=== PATIENT | female | born 1945 | race Caucasian/White ===

== ENCOUNTER → 2018-10-03 | Day surgery (SDC) | payer OTHER ==
[~2018-10-03] MED LIST: FOSAMAX 70 MG T70 MG PO; LIPITOR10 MG PO; LISINOPRIL2.5 MG PO; METFORMIN HCL500 MG PO
--- NOTE | ~2018-10-03 | H ---
[address] [address] HISTORY AND PHYSICAL Name: AQUILES NICHOLS Room: [facility]..#: [id number] Admission: Attend Phys: Tamia Esqueda MD Discharge: Date of : 43 Report #: [id number] THIS REPORT FOR: //name// CC: DIDIER Esqueda To be admitted and treated on 10/03/2018. ADMITTING DIAGNOSES: Cholelithiasis. HISTORY OF PRESENT ILLNESS: The patient is a 73-year-old white female who presented to my office with complaints of right upper quadrant pain. She was worked up by her private medical physician and that workup concluded with cholelithiasis, and she was referred for surgical management. PAST MEDICAL HISTORY: Includes stroke and borderline diabetes. CURRENT MEDICATIONS: Include alendronate, lisinopril, metformin and atorvastatin. PAST SURGICAL HISTORY: Includes a knee surgery in the past. SOCIAL HISTORY: Former smoker, quit 2 years ago. No history of excess alcohol or illegal drugs. FAMILY HISTORY: Noted for obesity, diabetes. OTHER REVIEW OF SYSTEMS: She denies any nausea or vomiting, any chest pain. She denied any skin changes, breast masses or itching. She denied any chronic cough or shortness of breath. PHYSICAL EXAMINATION: GENERAL: Modestly obese, well-developed female, in no acute distress. HEAD EYES, EARS, NOSE AND THROAT: Unremarkable. Sclerae are anicteric. NECK: Supple. Her neck was normal size with no mass, lesions. LUNGS: Clear. HEART: Regular rate and rhythm. ABDOMEN: Soft, nontender. Normal bowel sounds. She had no breast masses. NEUROLOGIC: She is oriented to person, place and time. IMPRESSION: Cholelithiasis without acute cholecystitis. PLAN: I have outlined laparoscopic cholecystectomy, its risks [place] [address] HISTORY AND PHYSICAL Name: MAGDALENAAQUILESGissel TRENT Room: [facility]#: [id number] Admission: Attend Phys: Tamia Esqueda MD Discharge: Date of : 43 Report #: [id number] answered her questions. She understands and wishes to proceed with surgical treatment. By: 1627 1712Tamia Esqueda MD /nt
--- NOTE | ~2018-10-03 | OP ---
[facility] [address] [place] [address] OPERATIVE REPORT Name: AQUILES NICHOLS Room: [facility].#: [id number] Admission: 10/03/18 Attend Phys: Tamia Esqueda MD Discharge: Date of : 43 Report #: [id number] THIS REPORT FOR: //name// CC: DIDIER Esqueda DATE OF SERVICE: 10/03/2018 PREOPERATIVE DIAGNOSIS: Chronic cholecystitis. POSTOPERATIVE DIAGNOSIS: Chronic cholecystitis. OPERATIVE PROCEDURE: Laparoscopic cholecystectomy. ANESTHESIA: General endotracheal with 0.25% Marcaine infiltrated into the wound sites. DESCRIPTION OF PROCEDURE: The patient was placed under general endotracheal anesthesia, and the abdomen was prepped and draped in a sterile fashion. The timeout taken. Antibiotics administered. I began by infiltrating in the infraumbilical crease with 0.5% Marcaine. A transverse incision was placed there. I just lifted up with 2 Adson forceps and cautery used to dissect down to the anterior abdominal wall that anterior abdominal wall was grasped with 2 Kochers and tented upward and cleared with cautery and then transversely incised with a #15 scalpel blade. Blunt dissection with a hemostat into the peritoneal cavity was performed and entered into the abdominal cavity without injury to underlying abdominal viscera. A 0 PDS was looped through this incision site and a size 12 Rebecca trocar was placed into the peritoneal cavity and secured at the skin. Insufflation with carbon dioxide to 5 L was completed. A 5 mm 30-degree scope was inserted into the peritoneal cavity. The right upper quadrant was inspected under direct visualization. Infiltration in the subcostal margin on the right side at the epigastric, midclavicular and anterior axillary line was accomplished, followed by 3 small incisions and then three 5 mm bladeless trocars were placed under direct visualization into the peritoneal cavity. The patient then was placed in reverse Trendelenburg left lateral decubitus positioning, and the gallbladder in the right upper quadrant had some adhesions to the liver or into the peritoneal surface, which was taken down with cautery and then the gallbladder was tented towards the diaphragm. Meticulous dissection at the triangle of Calot carefully dissected out the cystic duct and cystic artery. These two structures were controlled with Hemoclips and divided with laparoscopic scissors. Handheld cautery then was used to dissect the gallbladder off the undersurface of the liver. During that dissection, we did get into the gallbladder and some bile did spill. Once the gallbladder was free from its attachment, site changed to the camera position from the umbilical to the epigastric port and through the umbilical port, an Endopouch was fed into the abdomen under direct visualization. The [place] [address] OPERATIVE REPORT Name: AQUILES NICHOLS Room: [facility]..#: [id number] Admission: 10/03/18 Attend Phys: Tamia Esqueda MD Discharge: Date of : 43 Report #: [id number] pouch. The pouch string was pulled from the outside of the patient closing the pouch and the pouch and the gallbladder were retrieved from the umbilical incision site. The Rebecca trocar was then replaced back into the peritoneal cavity. Pneumoperitoneum was reestablished with the camera from the umbilical port. The upper abdomen was inspected, irrigated and aspirated until effluent came back clear. I then removed the endocrinology specialist, removed all laparoscopic instruments and then the trocars and deflated pneumoperitoneum. The umbilical 0 PDS was tied at the incision site and infiltrated with Marcaine and then all four incisions were closed with buried 4-0 PDS sutures and sealed with Dermabond at the end of the operative procedure. ESTIMATED BLOOD LOSS: 5 mL. Sponge and instrument counts correct. Specimen of gallbladder was sent to pathology. The patient was extubated, returned to recovery in stable condition. By: 1323 1631Tamia Esqueda MD /nt
[2018-10-03 11:08] LABS: HEMATOCRIT 51.2 % (37.0-47.0); MCH 28.5 pg (26.0-34.0); MCHC 33.2 g/dL (28.0-37.0); MCV 85.8 fL (80.0-100.0); MPV 9.4 fl. (7.2-11.1); RBC 5.97 mil/uL (4.20-5.00); WBC 10.7 thou/uL (4.0-11.0)
[2018-10-03 11:17] LABS: ALBUMIN 3.6 g/dL (3.4-5.0); CALCIUM 9.3 mg/dL (8.5-10.1); CREATININE 1.2 mg/dL (0.6-1.3); POTASSIUM 4.1 mmol/L (3.5-5.1); TOTAL BILIRUBIN 0.6 mg/dL (<0.1-1.0); TOTAL PROTEIN 8.1 g/dL (6.4-8.2)
--- NOTE | 2018-10-03 15:14 | EKG ---
[place] [address] ELECTROCARDIOGRAM REPORT Name: AQUILES NICHOLS Room: [facility]#: [id number] Admission: 10/03/18 Attend Phys: Tamia Esqueda MD Discharge: Date of : 43 Report #: [id number] THIS REPORT FOR: //name// [facility] Test Date: 2018-10-03 Test Time: 11:41:29 Pat Name: AQUILES NICHOLS Department: Room: Gender: F Metal Spinner: : 1945 Requested By: Tamia Esqueda Order Number: [id number] Reading MD: Boni Weinstein Measurements Intervals [place] Rate: 68 P: 15 LA: 183 QRS: -33 QRSD: 99 T: 36 QT: 395 QTc: 421 Interpretive Statements Sinus rhythm Left axis deviation No previous ECG available for comparison Electronically Signed On 10-03-2018 15:14:09 CDT by Boni Weinstein [email or web address] <ELECTRONICALLY SIGNED> By: Boni Weinstein MD, [facility] 10/03/18 1514 1141 1141 Boni Weinstein MD, FACC /EPI
--- NOTE | 2018-10-05 14:07 | PATH ---
[address] [address] PATHOLOGY RPT PROCEDURE Name: LAURA NICHOLS Room: [facility]..#: [id number] Admission: 10/03/18 Date of : 43 Discharge: Report #: [id number] Path Case #: [id number] [facility] Accession Number: [id number] . 01 Material submitted: . GALLBLADDER . 01 Clinical history: . Cholelithiasis . 02 Diagnosis: Gallbladder "gallbladder cholecystectomy": - Chronic cholecystitis with cholelithiasis. (SHA:[facility] 10/05/2018) QTP/10/05/2018 . 02 Electronically signed: . Teto Ratliff MD, Pathologist NPI- [id number] . 01 Gross description: . The specimen is received in formalin, labeled "Laura Nichols gallbladder". Received is an intact gallbladder measuring 6.4 x 4.0 x 1.0 cm in greatest dimensions displaying a pink-bey to adipose covered serosal surface. Opening the gallbladder reveals a velvety, light smith to bile-stained mucosa with a gallbladder wall thickness of 0.1 cm. A single light green, granular calculus is present and no masses or lesions are noted grossly. Manager Stylist sections, to include the proximal margin, are submitted in cassette A1. (CAA; 10/04/2018) QAC/QAC . 02 Pathologist provided ICD-10: K80.10 . 02 CPT . 079533 Specimen Comment: A courtesy copy of this report has been sent to Specimen Comment: [phone], . Specimen Comment: Report sent to / DR SHARMA Performed at: [address], [place], [place] [id number] MD Kyrie Nieto MD Phone: [phone] Performed at: 02 [facility] [address], [place], [place] [id number] MD Landry Andino MD Phone: [phone]
== END | disposition home or self-care (01) ==
LOC: M.SUR 07:43
PROVIDERS: Surgery
DX: K80.10 Calculus of gallbladder with chronic cholecystitis without obstruction (principal); Z86.73 Personal history of transient ischemic attack (TIA), and cerebral infarction without residual deficits; Z79.899 Other long term (current) drug therapy; Z98.890 Other specified postprocedural states; Z87.891 Personal history of nicotine dependence; Z83.3 Family history of diabetes mellitus; E66.9 Obesity, unspecified

== ENCOUNTER 2018-11-29 08:52 | Inpatient (IN) | payer OTHER ==
[2018-11-17 09:08] LABS: ABSOLUTE BASOPHILS 0.1 thou/uL (0.0-0.2); ABSOLUTE LYMPHOCYTES 2.3 thou/uL (0.8-5.3); ABSOLUTE MONOCYTES 0.6 thou/uL (0.0-1.2); BASOPHILS 1.2 %; EOSINOPHILS 9.8 %; HEMATOCRIT 51.3 % (37.0-47.0); HEMOGLOBIN 17.1 gm/dL (12.0-15.0); MCH 28.1 pg (26.0-34.0); MCHC 33.4 g/dL (28.0-37.0); MCV 84.2 fL (80.0-100.0); MONOCYTES 5.6 %; MPV 9.6 fl. (7.2-11.1); NUCLEATED RBCS 0 /100WBC; PLATELET COUNT* 279 thou/uL (150-400); POLYS 60.4 %; RBC 6.09 mil/uL (4.20-5.00); RDW-CV 14.5 % (10.5-14.5); WBC 9.9 thou/uL (4.0-11.0)
[2018-11-17 09:21] LABS: ALBUMIN 3.4 g/dL (3.4-5.0); CALCIUM 9.7 mg/dL (8.5-10.1); CREATININE 1.4 mg/dL (0.6-1.3); POTASSIUM 4.3 mmol/L (3.5-5.1); TOTAL BILIRUBIN 0.4 mg/dL (<0.1-1.0); TOTAL PROTEIN 7.7 g/dL (6.4-8.2)
[2018-11-17 11:13] LABS: ESR (SEDRATE) 2 mm/hr (0-30)
[2018-11-17 22:06] LABS: GLYCOHEMOGLOBIN (HGB A1C) 6.5 % (4.8-5.6)
[~2018-11-29] VITALS: Ht 162.6 cm; Wt 90.7 kg
[2018-11-29 15:00] VITALS: BP 119/68
--- NOTE | 2018-11-29 17:44 | NUR ---
PT ARRIVED FROM SURGERY AROUND 1500. PT STABLE. MEPILEX IS CLEAN, DRY AND INTACT. TEDS, SCDs AND ICE PACK IN PLACE. UP WITH 1 TO CAMMODE. IV IN R HAND PATENT, INFUSING. SON IN ROOM. TOLERATING DIET. PAIN CONTROLLED WITH OXY IR. ON RA WITH CONTINUOUS PULSE OX. A&Ox4. WBAT. FALL PRECAUTIONS IN PLACE. CALL LIGHT WITHIN REACH. WILL CONTINUE TO MONITOR.
[2018-11-29 20:00] VITALS: BP 113/56
[2018-11-30] VITALS (7 sets, daily range): BP systolic 88–114; BP diastolic 33–57
[2018-11-30 04:14] LABS: HEMOGLOBIN 13.3 gm/dL (12.0-15.0)
[2018-11-30 04:38] LABS: CALCIUM 8.8 mg/dL (8.5-10.1); CREATININE 1.3 mg/dL (0.6-1.3); MAGNESIUM 1.6 mg/dL (1.8-2.4); POTASSIUM 4.2 mmol/L (3.5-5.1)
--- NOTE | 2018-11-30 04:50 | NUR ---
ASSUMED PATIENT CARE AT 1900. PATIENT ALERT AND ORIENTED TIMES FOUR. MINOR COMPLAINTS OF PAIN, CONTROLLED WITH ORAL PAIN MEDICATIONS. IV PATENT. ABLE TO AMBULATE TO THE BEDSIDE COMMODE WITH WALKER/GAIT BELT, MIN ASSISST OF ONE.DRESSING C/D/I. FALL RISK PRECAUTIONS IN PLACE. OPTICAL ADVISOR AND HOURLY ROUNDING COMPLETED DOCUMENTED.
--- NOTE | 2018-11-30 12:51 | NUR ---
RECIEVED O.T. EVAL AND TX ORDERS. WILL DEFER TO P.T. AND NURSING. PLEASE ORDER FURTHER O.T. SERVICES IF NEEDED.
--- NOTE | 2018-11-30 13:22 | OP ---
[address] [address] OPERATIVE REPORT Name: AQUILES NICHOLS Room: [address] IN .R.#: [id number] Admission: 11/29/18 Attend Phys: Mikhail Hollis Discharge: Date of : 43 Report #: [id number] THIS REPORT FOR: //name// CC: DIDIER Donnelly DICTATED BY: Suresh Rush DO DATE OF SERVICE: 11/29/2018 PREOPERATIVE DIAGNOSIS: Advanced tricompartmental osteoarthritis, left knee. POSTOPERATIVE DIAGNOSIS: Advanced tricompartmental osteoarthritis, left knee. PROCEDURE: Left total knee arthroplasty utilizing the Torri Persona total knee system with the following components: 1. Size D left tibial baseplate. 2. Size 7 left CR femoral component. 3. Size 13 mm medial congruent highly cross-linked polyethylene tibial bearing. 4. A 32 mm diameter patella polyethylene spacer. 5. Two bags of Palacos plain bone cement. SURGEON: Barrett Cardoso DO. ESTATE PLANNING ATTORNEY: Suresh Rush DO. ANESTHESIA: General. ESTIMATED BLOOD LOSS: 150 mL. ANTIBIOTICS: 2 g Ancef IV preoperatively. DRAINS: None. SPECIMENS: None. COMPLICATIONS: None. TOURNIQUET TIME: 40 minutes at 300 mmHg to the left lower extremity. DISPOSITION: Stable to PACU and will be admitted to the hospital for standard postoperative care. INDICATIONS FOR PROCEDURE: The patient is a pleasant 73-year-old female who was seen multiple times in Orthopedic Clinic with complaints of chronic left knee pain. On x-ray, she had advanced degenerative joint disease changes with [facility] [address] [place] [address] OPERATIVE REPORT Name: AQUILES NICHOLS Room: [address] [place] [facility].#: [id number] Admission: 11/29/18 Attend Phys: Mikhail Hollis Discharge: Date of : 43 Report #: [id number] significant joint space narrowing and mzmf-xn-qzna apposition most notably in the medial compartment with significant osteophytic lipping and even some lateral shift of her tibia. She had a significant varus deformity to her left lower extremity. Her pain greatly inhibited her quality of life preventing her from performing activities that she wishes to and was refractory to conservative measures consisting of oral anti-inflammatories, activity modifications, home physical therapy exercises, intraarticular corticosteroid injections for much greater than 6 months' duration. Therefore, recommended proceeding with a left total knee arthroplasty. Risks, benefits, complications, indications and alternative treatments were discussed and the patient wished to proceed with surgery today. DESCRIPTION OF PROCEDURE: The patient was seen in preoperative holding area. Correct operative site, left knee was initialed. The patient was taken back to the operating suite, placed in supine position on the operating table, given benefit of general anesthesia. A well-padded tourniquet was placed to the left upper thigh. Left lower extremity was prepped and draped in typical fashion. Surgery began with timeout identifying correct patient, correct procedure, correct operative site, preoperative antibiotics and correct performing surgeon. Next, a standard anterior midline incision was made directly overlying the left knee, starting roughly 3 fingerbreadths proximal to the superior pole of patella, extending down to the tibial tubercle. Skin was incised with a 10 blade scalpel down to the level of the prepatellar fascia. A medial parapatellar arthrotomy was performed in standard fashion. Knee was flexed, patella was everted. The femoral entry drill was entered into the distal femur and the intramedullary canal followed by the distal femoral cutting guide. The cutting block was pinned into place. We took 1 mm extra resection off the distal femur and there was a 5-degree valgus cut. Distal femoral cut was carried out in the typical fashion. Next, extramedullary tibial guide was positioned into place over the medial third of the tibial tubercle down the tibial crest and at the center of the talus and along the second metatarsal. Next, a 2 mm resection was measured off the low medial side and a cutting block was pinned into place. Next, proximal tibia cut was performed in the usual fashion utilizing an oscillating saw. All bony debris removed. All ligamentous and neurovascular structures were protected with retractors. Next, knee was taken into extension. A 10 mm spacer block was easily positioned. There was a little bit more tightness on the medial aspect of the knee as to be expected. Therefore, we did a slight release distally of the pes insertion of superficial MCL with a Phelps elevator. Next, knee was again flexed. AP sizer was placed on the distal femur, sized to a size 7. A 4-in-1 cutting block was then pinned into place in the normal fashion, 3 degrees external rotation. Anterior posterior and anterior posterior chamfer cuts were performed in the normal fashion. Next, menisci were excised. Medial osteophyte was taken off of our tibia which helped [facility] [address] [place] [address] OPERATIVE REPORT Name: AQUILES NICHOLS Room: [facility] M.R.#: [id number] Admission: 11/29/18 Attend Phys: Mikhail Hollis Discharge: Date of : 43 Report #: [id number] our balancing as well. Tibia was sized to the appropriate size trial and pinned into place. A trial femur was impacted into place. A trial 10-mm polyethylene spacer up to a 13 mm polyethylene spacer was inserted. Knee was taken through range of motion and felt to be stable in mid flexion and had full flexion and full extension with no significant lag noted. Was stable to varus and valgus stress at 0 and 30 degrees. Next, attention was turned to the patella. It was resurfaced utilizing the [employer] reaming system, and a trial patellar button was placed on the patella after drilling in the normal fashion. Next, the femur was drilled for CR femur. The tibia was drilled and a cruciate punched in normal fashion. All trial components were removed. The bony surfaces were thoroughly irrigated utilizing pulsatile lavage. Cement was mixed on the back table. Next, final implants were cemented in normal fashion, starting first with the tibia after applying cement both to the proximal tibial surface and the tibial component followed by the femur in a similar fashion. These components were impacted into place. All excess cement was removed. A 12-mm polyethylene spacer was inserted and held in extension until cement was hardening. We did place our final patella button on as well prior to cement hardening and held this with a clamp. Once cement had hardened, we trialled up to a size 13 mm polyethylene spacer. We felt this was stable throughout range of motion, good mid flexion stability and stable to varus and valgus stress. Therefore, we flexed the knee and thoroughly irrigated, removed any remaining cement debris and placed our final polyethylene spacer, which was secured into place with a normal locking mechanism. Next, the knee again was taken through a range of motion and felt to have full flexion and full extension and stable to varus valgus stress, good mid flexion stability. Next, a standard TXA was allowed to sit in the knee for roughly 3-5 minutes. Tourniquet was deflated. A Betadine solution was allowed to sit in the knee as well. Thorough irrigation was performed after this. Capsular layer was closed in a hydxje-rq-hvyer fashion starting with #1 TiCron at the apex of the patella followed by multiple #1 Vicryl sutures in a xvpucr-pl-cbpfe fashion. Next, subcutaneous layer was closed in a simple inverted fashion with a 2-0 Monocryl suture followed by a running 3-0 subcuticular Stratafix on the skin. Dermabond was applied superficially on the skin. Standard dressings were applied consisting of Mepilex and a FREYA hose. The patient was weaned from general anesthesia, transferred in stable condition to the PACU. All sponge and needle counts were correct x 2. <ELECTRONICALLY SIGNED> By: Barrett Cardoso DO 11/30/18 1322 1150 2313Cdenisse Cardoso DO /nt
--- NOTE | 2018-11-30 16:54 | NUR ---
SPOKE WITH PT. SON,RAO,WAS AT BEDSIDE. PT.SAID SHE NORMALLY LIVES ALONE AND IS INDEPENDENT. SHE STILL DRIVES. HER SON,RAO WILL BE STAYING WITH HER LONG NEEDED. SHE HAS A FRONT WHEEL WALKER IN ROOM FROM HOME. SHE WOULD LIKE TO DO HOME HEALTH INITIALLY AND CHOSE [facility]. CM WILL MAKE REFERRAL IN AM. CM CALLED IN PRESCRIPTION WRITTEN FOR ABEL TO PT.S PHARMACY-[facility] [phone]. COPAY WAS $21.93. WILL INFORM PT.TOMORROW.
--- NOTE | 2018-11-30 17:14 | NUR ---
PT A&Ox4. BP HAS BEEN RUNNING LOW, CHARTED. TRACE ORDERED A BOLUS AND CONTINOUS FLUIDS TO RUN. WILL CHECK AGAIN WHEN BOLUS IS FINISHED AND CHART RESULTS. DRESSING IS CLEAN, DRY AND INTACT. TEDS IN PLACE. UP WITH 1 USING GAITBELT AND WALKER. PAIN CONTROLLED WITH OXY IR. FALL PRECAUTIONS IN PLACE. CALL LIGHT WITHIN REACH. WILL CONTINUE TO MONITOR.
[2018-12-01 02:54] VITALS: BP 124/59
[2018-12-01 04:41] LABS: HEMATOCRIT 38.7 % (37.0-47.0); HEMOGLOBIN 12.8 gm/dL (12.0-15.0)
--- NOTE | 2018-12-01 04:41 | NUR ---
ASSUMED PATIENT CARE AT 1900. PATIENT ALERT AND ORIENTED TIMES FOUR. MINOR COMPLAINTS OF PAIN,CONTROLLED WITH ORAL MEDICATION. PATIENT MAINTAINED BP WNL THROUGHOUT THE NIGHT. UP TO USE THE BEDSIDE COMMODE SEVERAL TIMES. CUPROUS CHLORIDE HELPER AND HOURLY ROUNDING COMPLETED DOCUMENTED. SURGICAL DRESSING C/D/I
[2018-12-01 08:00] VITALS: BP 88/52
[2018-12-01 08:57] VITALS: BP 124/59
--- NOTE | 2018-12-01 13:33 | NUR ---
AND UlicesRECOMMENDING PT.GO TO SNF AT DISCHARGE. DISCUSSED WITH SON AND PT. THEY ARE AGREEABLE. GAVE LIST OF SNFS THAT CONTRACT WITH PT.'S INSURANCE. THEY WILL LOOK AT AND LET CM KNOW SHORTLY.
[2018-12-01 17:42] VITALS: BP 90/49
--- NOTE | 2018-12-01 17:47 | NUR ---
PT A&Ox4. BP ON THE LOWER SIDE OF NORMAL, IV FLUIDS STARTED AGAIN. DRESSING IS CLEAN, DRY AND INTACT. UP WITH 1 MIN ASSIST WITH GAITBELT AND WALKER. WORKED WITH THERAPY WELL. TEDs IN PLACE. PAIN CONTROLLED WITH OXY IR AND TYLENOL. FALL PRECAUTIONS IN PLACE. CALL LIGHT WITHIN REACH. WILL CONTINUE TO MONITOR.
[2018-12-01 20:00] VITALS: BP 129/51
--- NOTE | 2018-12-02 04:13 | NUR ---
ASSUMED PATIENT CARE AT 1900. PATIENT ALERT AND ORIENTED TIMES FOUR. COMPLAINTS OF PAIN THROUGH THE NIGHT. REQUESTED IV PAIN MEDICATIONS STATED "THE OTHER STUFF JUST WONT CUT IT" COMPLAINTS OF NAUSEA ALSO. STAR ROUTE MAIL DRIVER AND HOURLY ROUNDING COMPLETED DOCUMENTED
--- NOTE | 2018-12-02 04:18 | NUR ---
[place] PATIENT CARE AT 1900. PATIENT ALERT AND ORIENTED TIMES FOUR. MINOR COMPLAINTS OF PAIN, CONTROLLED WITH ORAL PAIN MEDICATION. ABLE TO TRANSFER WITH WALKER AND ASSISST OF ONE [place] [facility] BLOOD PRESSURE MEDICATION HELD LAST EVENING SINCE PATIENT HAS HAD SOME DIFFICULTY MAINTAING A BP WNL. IV INFILTRATED AROUND 2100, HOT PACK APPLIED. BLOOD PRESSURE HAS REMAINED WNL THROUGHOUT THE SHIFT. HVAC PROJECT MANAGER AND HOURLY ROUNDING COMPETED DOCUMENTED.
[2018-12-02 08:00] VITALS: BP 94/48
[2018-12-02] MEDS ORDERED: OXYCODONE HCL 55 MG PO (08:43)
[2018-12-02] MEDS ORDERED: ELIQUIS5 MG PO (08:43)
--- NOTE | 2018-12-02 09:44 | NUR ---
RECEIVED MESSAGE FROM CONCEPCIÓN/LEXIS FROM LATE YESTERDAY. PT.HAS BEEN MEDICALLY ACCEPTED AT [facility]. SHE DID START INSURANCE AUTH PROCESS.
[2018-12-02 16:16] VITALS: BP 119/48
--- NOTE | 2018-12-02 16:32 | NUR ---
SHIFT NOTE - FAMILY PRESENT AT BEDSIDE FOR MOST OF THIS SHIFT. PT UP IN THE CHAIR WITH MINIMAL ASSIST THIS AM. AWAITING PLACEMENT TO [facility]. WILL CONTINUE TO MONITOR.
[2018-12-02 21:30] VITALS: BP 113/43
--- NOTE | 2018-12-03 06:16 | NUR ---
this nurse assumes care of pt 12/02/18 at 1930, pt is alert and oriented, pt up to bedside commode with assist x 1, pain managed with po pain meds, pt denies any concerns this shift, pt expresses that she is "trying to get placement" in a skilled facility, pt resting quietly in bed at this time, call light within reach, bed alarm on, bed in lowest position, no s/s acute distress noted
[2018-12-03 07:50] VITALS: BP 90/41
--- NOTE | 2018-12-03 11:52 | NUR ---
SPOKE WITH [facility]/ [facility]. STILL AWAITING INS AUTH FROM [employer]. FAXED ADDITIONAL INFO TO SUSU/JUDIT PER REQUEST
[2018-12-03 11:53] VITALS: BP 102/41
[2018-12-03 16:00] VITALS: BP 111/48
--- NOTE | 2018-12-03 16:30 | NUR ---
ASSUMED CARE OF PATIENT AT APPROX 0730. ALERT AND ORIENTED X4. ASSESSMENT COMPLETED AND CHARTED. VSS ON ROOM AIR. PAIN HAS BEEN MANAGED WITH OXY THIS SHIFT. PATIENT WORKED WITH THERAPIES AND PROGRESSED TOWARD GOALS. CALL LIGHT WITHIN REACH. HOURLY ROUNDS COMPLETED. CALL LIGHT WITHIN REACH AND SON AT BEDSIDE THROUGHOUT SHIFT. NURSING WILL CONTINUE TO MONITOR.
--- NOTE | 2018-12-03 17:26 | NUR ---
PATIENT DISCHARGED TO SKILLED FACILITY AT 1720 WITH ALL PERSONAL BELONGINGS, PRESCRIPTIONS AND DISCHARGE PACKET. REPORT GIVEN TO RN AT [facility].
== END 2018-12-03 17:20 | DRG 470 ==
LOC: M.SUR 08:52 → M.TBA 11:40 → M.ORTHSURG 11:40 → M.SUR 13:10 → M.ORTHSURG 14:44
PROVIDERS: Internal Medicine; Orthopaedic Surgery; ADMIT Internal Medicine
PROC: 0SRD0J9 Replacement of Left Knee Joint with Synthetic Substitute, Cemented, Open Approach (ICD-10-PCS; principal; 2018-11-29)
DX: M17.12 Unilateral primary osteoarthritis, left knee (principal); G45.9 Transient cerebral ischemic attack, unspecified; Z96.651 Presence of right artificial knee joint; E78.5 Hyperlipidemia, unspecified; E66.9 Obesity, unspecified; E11.9 Type 2 diabetes mellitus without complications; J44.9 Chronic obstructive pulmonary disease, unspecified; Z86.73 Personal history of transient ischemic attack (TIA), and cerebral infarction without residual deficits; Z87.891 Personal history of nicotine dependence; Z90.49 Acquired absence of other specified parts of digestive tract; Z68.34 Body mass index [BMI] 34.0-34.9, adult; Z79.899 Other long term (current) drug therapy